=== PATIENT | female | born 1970 | race Caucasian/White ===

== ENCOUNTER → 2016-10-13 | Outpatient (CLI) | payer BC ==
[~2016-10-13] MED LIST: ATEN-173 PO; ATEN50TA8 PO; B-COTAB18; B-COTAB18 PO; CHOL100010; CHOLCAP5 PO; CLBPO15 TOP; CMD5 PO; CRS/10 PO; CRS10 PO; ENOX1INJ9 SQ; LISI40TA PO; MEDLIST; OMEP20CA9; OMEP20CA9 PO; TRAM-10 PO; WARF5TAB7 PO; WARF5TAB90 PO; WARF7.5T PO
[2016-10-13 13:06] LABS: BASO % 0.4 %; BASO ABS # 0.04 K/uL (0-0.2); EOS % 6.9 %; HEMATOCRIT 26.4 % (37-47); IG% 0.5 %; LYMPH % 22.1 %; LYMPH ABS # 2.35 K/uL (1.2-3.4); MEAN CELL VOLUME 68.4 fL (80-100); MEAN CORPUSCULAR HEMOGLOBIN 20.2 pg (25-34); MEAN CORPUSCULAR HGB CONC 29.5 g/dl (32-36); MEAN PLATELET VOLUME 8.2 fL (7.4-10.4); MONO % 6.9 %; NEUT % 63.2 %; PLATELET COUNT 376 K/uL (130-400); RED BLOOD COUNT 3.86 M/uL (4.2-5.4); WHITE BLOOD COUNT 10.65 K/uL (4.8-10.8)
[2016-10-13 13:21] LABS: ESTIMATED AVERAGE GLUCOSE 163 mg/dl; HA1C FLAG Normal (Normal)
[2016-10-13 14:01] LABS: COMPLETE YES; MICROCYTOSIS PRESENT; OVALOCYTES 1+
== END | disposition home or self-care (01) ==
LOC: C.LAB1850 11:43
PROVIDERS: ATTEND Family Medicine
DX: R73.9 Hyperglycemia, unspecified (principal); E78.5 Hyperlipidemia, unspecified

== ENCOUNTER → 2016-12-23 | Day surgery (SDC) | payer BC ==
[2016-12-13 11:50] VITALS: BMI 43.0
[~2016-12-23] VITALS: Ht 162.6 cm; Wt 113.6 kg
[~2016-12-23] MED LIST changes: -ATEN-173 PO; -B-COTAB18; -CHOL100010; -CMD5 PO; -CRS10 PO; +LIDOCAINE HCL 2% 2 ML VIAL (20MG/ML) ONE; -MEDLIST; +MIDAZOLAM HCL 1 MG/ML 2ML VIAL ONE; -OMEP20CA9; +PROPOFOL IV EMULSION 10 MG/ML 20 ML VIAL IV ONE; +SODIUM CHLORIDE 0.9% 500ML 500 ML IV ONE; -WARF7.5T PO
[2016-12-23 12:44] VITALS: Ht 162.6 cm; Wt 113.6 kg
--- NOTE | 2016-12-23 13:14 | Endo History and Physical ---
History & Physical Date of Service: December 23, 2016. Chief Complaint: anemia Referring Physician: Dr. Kearney History of Present Illness SHELIA Past Surgical History Hx Cardiac Surgery: No Hx Internal Defibrillator: No Hx Pacemaker: No Hx Abdominal Surgery: Yes () Hx of Implantable Prosthesis: No Hx Post-Op Nausea and Vomiting: No Hx Cancer Surgery: No Hx Thoracic Surgery: No Hx Orthopedic: Yes (LEFT FOOT SX) Hx Urinary Tract Surgery: No Family History None Social History Smoking Status: Current Every Day Smoker Hx Substance Use: No Hx Alcohol Use: Yes (OCCASIONALLY) Allergies Coded Allergies: No Known Allergies (Unverified , 12/23/16) Current Medications Reported Home Medications Medications Dose Route/Sig Max Daily Dose Days Date Category Dose Instructions Lovenox (Enoxaparin Sodium) 40 Mg/0.4 Ml Inj 40 Mg SQ DAILY 12/23/16 Reported Prilosec (Omeprazole) 20 Mg Cap 20 Mg PO QAM 12/13/16 Reported Coumadin (Warfarin Sodium) 5 Mg Tab 5 Mg PO DIRECTED 12/13/16 Reported TAKES 5MG 6XWEEKLY TAKES 1.5TAB ON SUNDAYS Vitamin D3 (Cholecalciferol) 5,000 Unit Cap 1 Cap PO QAM 12/13/16 Reported Vitamin B Complex (B-Complex Vitamins) 1 Tab Tab 1 Tab PO QAM 12/13/16 Reported Ultram (Tramadol HCl) 50 Mg Tab 50 Mg PO TID PRN 12/13/16 Reported Crestor (Rosuvastatin Calcium) 10 Mg Tab 10 Mg PO HS 12/13/16 Reported Zestril (Lisinopril) 40 Mg Tab 40 Mg PO QAM 12/13/16 Reported Clobetasol Propionate 45 Appln/15 Gm Oint 1 Appln TOP BID PRN 30 12/13/16 Reported Tenormin (Atenolol) 50 Mg Tab 50 Mg PO BID 12/13/16 Reported Vital Signs Weight (Kilograms): 113.64 Height (Feet): 5 Height (Inches): 4 Date Time Temp Pulse Resp B/P Pulse Ox O2 Delivery O2 Flow Rate FiO2 12/23/16 13:00 36.7 77 18 129/66 98 Room Air Physical Exam [id number] Lungs CTA Abd soft NT/ND + BS - CCE Assessment and Plan EGd/Colon for SHELIA
--- NOTE | 2016-12-23 14:05 | Discharge Instructions ---
Endoscopy Patient Instructions Date / Procedure(s) Performed December 23, 2016. Colonoscopy, EGD Allergy Information Coded Allergies: No Known Allergies (Unverified , 12/23/16) Discharge Date / Findings December 23, 2016. HH; polyp at rectum Medication Instructions Stopped Medication(s): coumadin stopped and bridged with Lovenox Restart Stopped Medication(s): Reported Home Medications Medications Dose Route/Sig Max Daily Dose Days Date Category Dose Instructions Lovenox (Enoxaparin Sodium) 40 Mg/0.4 Ml Inj 40 Mg SQ DAILY 12/23/16 Reported Prilosec (Omeprazole) 20 Mg Cap 20 Mg PO QAM 12/13/16 Reported Coumadin (Warfarin Sodium) 5 Mg Tab 5 Mg PO DIRECTED 12/13/16 Reported TAKES 5MG 6XWEEKLY TAKES 1.5TAB ON SUNDAYS Vitamin D3 (Cholecalciferol) 5,000 Unit Cap 1 Cap PO QAM 12/13/16 Reported Vitamin B Complex (B-Complex Vitamins) 1 Tab Tab 1 Tab PO QAM 12/13/16 Reported Ultram (Tramadol HCl) 50 Mg Tab 50 Mg PO TID PRN 12/13/16 Reported Crestor (Rosuvastatin Calcium) 10 Mg Tab 10 Mg PO HS 12/13/16 Reported Zestril (Lisinopril) 40 Mg Tab 40 Mg PO QAM 12/13/16 Reported Clobetasol Propionate 45 Appln/15 Gm Oint 1 Appln TOP BID PRN 30 12/13/16 Reported Tenormin (Atenolol) 50 Mg Tab 50 Mg PO BID 12/13/16 Reported Reported Home Medications Medications Dose Route/Sig Max Daily Dose Days Date Category Dose Instructions Lovenox (Enoxaparin Sodium) 40 Mg/0.4 Ml Inj 40 Mg SQ DAILY 12/23/16 Reported Prilosec (Omeprazole) 20 Mg Cap 20 Mg PO QAM 12/13/16 Reported Coumadin (Warfarin Sodium) 5 Mg Tab 5 Mg PO DIRECTED 12/13/16 Reported TAKES 5MG 6XWEEKLY TAKES 1.5TAB ON SUNDAYS Vitamin D3 (Cholecalciferol) 5,000 Unit Cap 1 Cap PO QAM 12/13/16 Reported Vitamin B Complex (B-Complex Vitamins) 1 Tab Tab 1 Tab PO QAM 12/13/16 Reported Ultram (Tramadol HCl) 50 Mg Tab 50 Mg PO TID PRN 12/13/16 Reported Crestor (Rosuvastatin Calcium) 10 Mg Tab 10 Mg PO HS 12/13/16 Reported Zestril (Lisinopril) 40 Mg Tab 40 Mg PO QAM 12/13/16 Reported Clobetasol Propionate 45 Appln/15 Gm Oint 1 Appln TOP BID PRN 30 12/13/16 Reported Tenormin (Atenolol) 50 Mg Tab 50 Mg PO BID 12/13/16 Reported Provider Instructions Activity Restrictions - No exercising or heavy lifting for 24 hours. - Do not drink alcohol the day of the procedure. - Do not drive a car or operate machinery until the day after the procedure. - Do not make any important decisions or sign important papers in 24 hours after the procedure. Following Day: - Return to full activity which may include returning to work/school. Diet Start your diet with liquids and light foods (jello, soup, juice, toast). Then eat your usual diet if not nauseated. Treatment For Common After Affects For mild abdominal pain, bloating, or excessive gas: - Rest - Eat lightly - Lie on right side Follow-Up Information Follow-up with Dr. Kearney as scheduled Anesthesia Information What You Should Know You have had a procedure that required some medicine to reduce anxiety and discomfort. This treatment is called moderate sedation. After receiving the treatment, you may be sleepy, but you will be able to breathe on your own. The effects of the treatment may last for several hours. Follow these instructions along with Activity/Diet recommendations noted above: * Do NOT do anything where dizziness or clumsiness would be dangerous. * Rest quietly at home today, then you can be up and about tomorrow. * Have a responsible person stay with you the rest of today. * You may have had an I.V. today. If so, you may take the dressing off later today. Recommendations Call your doctor if: * Trouble breathing * Continuous vomiting for more than 24 hours * Temperature above 101 degrees * Severe abdominal pain or bloating * Pain not relieved by pain medicine ordered * There is increased drainage or redness from any incision * A large amount of rectal bleeding greater than 2-3 tablespoons. (If you had a polyp/s removed or have hemorrhoids, a small amount of blood - from the rectum is to be expected.) * You have any unanswered questions or concerns. IN THE EVENT OF A SERIOUS EMERGENCY, GO TO THE NEAREST EMERGENCY ROOM Your discharge instructions were prepared by provider John Gunderson. Patient Instructions Signature Page Traci Clay Patient (or Guardian) Signature/Date: I have read and understand the instructions given to me by my caregivers. Caregiver/RN/Doctor Signature/Date: The above-named patient and/or guardian has received patient instructions on this date. + Original Patient Signature Page (only) stays with chart. Please make copy for patient.
--- NOTE | 2016-12-23 14:15 | GI REPORT ---
Procedure Date: 12/23/2016 1:02 PM Procedure: Upper GI endoscopy Indications: Iron deficiency anemia Medicines: Propofol per Anesthesia Complications: No immediate complications. Estimated blood loss: Minimal. Estimated Blood Loss: Estimated blood loss was minimal. Procedure: Pre-Anesthesia Assessment: - Prior to the procedure, a History and Physical was performed, and patient medications and allergies were reviewed. The patient's tolerance of previous anesthesia was also reviewed. The risks and benefits of the procedure and the sedation options and risks were discussed with the patient. All questions were answered, and informed consent was obtained. Prior Anticoagulants: The patient has taken no previous anticoagulant or antiplatelet agents. ASA Grade Assessment: III - A patient with severe systemic disease. After reviewing the risks and benefits, the patient was deemed in satisfactory condition to undergo the procedure. After obtaining informed consent, the endoscope was passed under direct vision. Throughout the procedure, the patient's blood pressure, pulse, and oxygen saturations were monitored continuously. The scope was introduced through the mouth, and advanced to the mid-jejunum. The upper GI endoscopy was accomplished without difficulty. The patient tolerated the procedure well. Findings: The examined esophagus was normal. A medium-sized hiatus hernia was found. The proximal extent of the gastric folds (end of tubular esophagus) was 35 cm from the incisors. The hiatal narrowing was 40 cm from the incisors. The Z-line was 35 cm from the incisors. The entire examined stomach was normal. The examined duodenum was normal. Biopsies for histology were taken with a cold forceps for evaluation of celiac disease. Estimated blood loss was minimal. Verification of patient identification for the specimen was done by the physician and investment recovery technician using the patient's name and medical record number. The examined jejunum was normal. The cardia and gastric fundus were normal on retroflexion. Impression: - Normal esophagus. - Medium-sized hiatus hernia. - Normal stomach. - Normal examined duodenum. Biopsied. - Normal examined jejunum. Recommendation: - Discharge patient to home (ambulatory). - Patient has a contact number available for emergencies. The signs and symptoms of potential delayed complications were discussed with the patient. Return to normal activities tomorrow. Written discharge instructions were provided to the patient. - Resume regular diet. - Perform a colonoscopy today. MD John Pineda MD 12/23/2016 2:13:58 PM This report has been signed electronically. Note Initiated On: 12/23/2016 1:02 PM I attest to the content of the Intraoperative Record and orders documented therein, exceptions below
--- NOTE | 2016-12-23 14:24 | GI REPORT ---
Procedure Date: 12/23/2016 1:40 PM Procedure: Colonoscopy Indications: Iron deficiency anemia Medicines: Propofol per Anesthesia Complications: No immediate complications. Estimated blood loss: None. Estimated Blood Loss: Estimated blood loss: none. Procedure: Pre-Anesthesia Assessment: - Prior to the procedure, a History and Physical was performed, and patient medications and allergies were reviewed. The patient's tolerance of previous anesthesia was also reviewed. The risks and benefits of the procedure and the sedation options and risks were discussed with the patient. All questions were answered, and informed consent was obtained. Prior Anticoagulants: The patient has taken Lovenox (enoxaparin), last dose was 1 day prior to procedure. ASA Grade Assessment: III - A patient with severe systemic disease. After reviewing the risks and benefits, the patient was deemed in satisfactory condition to undergo the procedure. After I obtained informed consent, the scope was passed under direct vision. Throughout the procedure, the patient's blood pressure, pulse, and oxygen saturations were monitored continuously. The scope was introduced through the anus and advanced to the cecum, identified by appendiceal orifice and ileocecal valve. The colonoscopy was performed without difficulty. The patient tolerated the procedure well. The quality of the bowel preparation was good. Findings: The perianal and digital rectal examinations were normal. Pertinent negatives include normal sphincter tone, no palpable rectal lesions and no anal lesion or abnormality was detected. A 12 mm polyp was found at 20 cm proximal to the anus. The polyp was pedunculated. The polyp was removed with a hot snare. Resection and retrieval were complete. To prevent bleeding after the polypectomy, one hemostatic clip was successfully placed (MR conditional). The exam was otherwise without abnormality. A few small-mouthed diverticula were found in the sigmoid colon. The retroflexed view of the distal rectum and anal verge was normal and showed no anal or rectal abnormalities. Blood was noted in the perineal area endoscopically prior to insertion ( + Menses) Impression: - One 12 mm polyp at 20 cm proximal to the anus, removed with a hot snare. Resected and retrieved. Clip (MR conditional) was placed. - The examination was otherwise normal. - Diverticulosis in the sigmoid colon. - The distal rectum and anal verge are normal on retroflexion view. Recommendation: - Discharge patient to home (ambulatory). - Resume regular diet. - Continue present medications. - Await pathology results. - Repeat colonoscopy for surveillance based on pathology results. - Return to referring physician as previously scheduled. MD John Pineda MD 12/23/2016 2:23:14 PM This report has been signed electronically. Note Initiated On: 12/23/2016 1:40 PM I attest to the content of the Intraoperative Record and orders documented therein, exceptions below
--- NOTE | 2016-12-23 14:46 | Anesthesiology Progress Note ---
Anesthesia Post Op Note Date & Time December 23, 2016 at 14:46 Vital Signs Pain Intensity: 0 Vital Signs Past 12 Hours Date Time Temp Pulse Resp B/P Pulse Ox O2 Delivery O2 Flow Rate FiO2 12/23/16 14:10 76 18 126/67 95 Room Air 12/23/16 13:00 36.7 77 18 129/66 98 Room Air Notes Mental Status: alert / awake / arousable, participated in evaluation Pt Amnestic to Procedure: Yes Nausea / Vomiting: adequately controlled Pain: adequately controlled Airway Patency, RR, SpO2: stable & adequate BP & HR: stable & adequate Hydration State: stable & adequate Anesthetic Complications: no major complications apparent
[2016-12-23 15:08] VITALS: BP 141/76; PULSE 74; O2SAT 96
== END | disposition home or self-care (01) ==
LOC: C.GI 12:10
PROVIDERS: ATTEND Internal Medicine Gastroenterology
DX: D50.9 Iron deficiency anemia, unspecified (principal); K62.0 Anal polyp; K57.30 Diverticulosis of large intestine without perforation or abscess without bleeding; K44.9 Diaphragmatic hernia without obstruction or gangrene; I10 Essential (primary) hypertension; M19.90 Unspecified osteoarthritis, unspecified site; Z86.73 Personal history of transient ischemic attack (TIA), and cerebral infarction without residual deficits; Z98.890 Other specified postprocedural states; F17.200 Nicotine dependence, unspecified, uncomplicated; E66.01 Morbid (severe) obesity due to excess calories; Z68.41 Body mass index [BMI] 40.0-44.9, adult

== ENCOUNTER → 2017-03-21 | Outpatient (CLI) | payer BC ==
[~2017-03-21] MED LIST changes: -LIDOCAINE HCL 2% 2 ML VIAL (20MG/ML) ONE; -MIDAZOLAM HCL 1 MG/ML 2ML VIAL ONE; -PROPOFOL IV EMULSION 10 MG/ML 20 ML VIAL IV ONE; -SODIUM CHLORIDE 0.9% 500ML 500 ML IV ONE
== END | disposition home or self-care (01) ==
LOC: C.PAPS 08:16
PROVIDERS: ATTEND Family Medicine
DX: Z01.419 Encounter for gynecological examination (general) (routine) without abnormal findings (principal)